=== PATIENT | male | born 2000 | race African-American/Black ===

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

== ENCOUNTER 2018-02-18 17:19 | Emergency (ER) | payer OTHER ==
[~2018-02-18] VITALS: Ht 175.3 cm; Wt 86.2 kg
[~2018-02-18 17:19] MED LIST changes: +AMOXICILLIN 50500 MG PO
[2018-02-18] MEDS ORDERED: NAFTIFINE HCL45 GM TOP (17:45)
[2018-02-18] MEDS ORDERED: ACTICIN 5% CREA60 G1 TOP (17:45)
[2018-02-18 17:47] VITALS: BP 147/45
== END 2018-02-18 22:48 | disposition home or self-care (01) ==
LOC: M.ERS 17:19
DX: B86 Scabies (principal); B35.4 Tinea corporis

== ENCOUNTER 2018-12-03 00:25 | Emergency (ER) | payer OTHER ==
[~2018-12-03] VITALS: Ht 170.2 cm; Wt 95.7 kg
[~2018-12-03 00:25] MED LIST changes: +ACTICIN 5% CREA60 G1 TOP; +NAFTIFINE HCL45 GM TOP
[2018-12-03 00:54] LABS: ABSOLUTE EOSINOPHILS 0.1 thou/uL (0.0-0.7); ABSOLUTE LYMPHOCYTES 2.4 thou/uL (0.8-5.3); ABSOLUTE MONOCYTES 0.5 thou/uL (0.0-1.2); ABSOLUTE NEUTROPHILS 2.5 thou/uL (1.6-8.1); BASOPHILS 0.4 %; EOSINOPHILS 1.4 %; HEMATOCRIT 36.3 % (42.0-52.0); HEMOGLOBIN 12.1 gm/dL (14.0-18.0); LYMPHOCYTES 43.5 %; MCH 27.3 pg (26.0-34.0); MCHC 33.3 g/dL (28.0-37.0); MONOCYTES 9.7 %; MPV 9.2 fl. (7.2-11.1); NUCLEATED RBCS 0 /100WBC; PLATELET COUNT* 183 thou/uL (150-400); RBC 4.43 mil/uL (4.50-6.00); RDW-CV 13.6 % (10.5-14.5); WBC 5.5 thou/uL (4.0-11.0)
[2018-12-03 01:01] LABS: CALCIUM 9.2 mg/dL (8.5-10.1); MAGNESIUM 1.7 mg/dL (1.8-2.4); POTASSIUM 3.8 mmol/L (3.5-5.1)
[2018-12-03 01:33] VITALS: BP 129/68
== END 2018-12-03 01:34 | disposition home or self-care (01) ==
LOC: M.ERS 00:25
PROVIDERS: Emergency Medicine
DX: E83.42 Hypomagnesemia (principal); M79.671 Pain in right foot; M79.672 Pain in left foot